=== PATIENT | male | born 1985 | race African-American/Black ===

== ENCOUNTER 2022-09-29 10:30 | Emergency (ER) | payer OTHER ==
[2022-09-29 11:05] VITALS: BP 130/90; PULSE 69; RESP 16; TEMP 98; BMI 28.5
[2022-09-29] MEDS ORDERED: IBUPROFEN 600 MG TABLET (FP) PO ONE ×2 (11:07→11:10)
== END 2022-09-29 11:57 | disposition home or self-care (01) ==
LOC: FER 10:30
DX: S80.211A Abrasion, right knee, initial encounter (principal)
CPT/HCPCS: 73560-TC-RT-FY; 99284-25

== ENCOUNTER 2022-11-22 15:18 | Emergency (ER) | payer BC, OTHER ==
[2022-11-22 15:22] VITALS: BP 127/105; PULSE 70; RESP 18; TEMP 98.9; BMI 27.7
[2022-11-22] MEDS ORDERED: KETOROLAC TROMETHAMINE 30 MG/1 ML VIAL IM ONE (16:34)
[2022-11-22] MEDS ORDERED: AMOX TR/POT CLAV 875MG/125MG TABLETS (FP) PO ONE (16:34)
[2022-11-22] MEDS ORDERED: AMOX TR/POT CLAV 875MG/125MG TABLETS (FP) ONE (16:36)
[2022-11-22] MEDS ORDERED: KETOROLAC TROMETHAMINE 30 MG/1 ML VIAL ONE (16:37)
== END 2022-11-22 16:49 | disposition home or self-care (01) ==
LOC: FER 15:18
PROC: 3E0233Z Introduction of Anti-inflammatory into Muscle, Percutaneous Approach (ICD-10-PCS; principal; 2022-11-22)
DX: K08.89 Other specified disorders of teeth and supporting structures (principal)
CPT/HCPCS: 99284-25

== ENCOUNTER 2022-11-24 15:11 | Emergency (ER) | payer BC ==
[2022-11-24 15:23] VITALS: BP 129/87; PULSE 86; RESP 20; TEMP 100.1; BMI 30.9
== END 2022-11-24 17:49 | disposition home or self-care (01) ==
LOC: FER 15:11
DX: U07.1 COVID-19 (principal); R05.1 Acute cough
CPT/HCPCS: 0241U-QW; 71046-TC-FY; 99284-25

== ENCOUNTER 2023-09-10 12:04 | Emergency (ER) | payer BC, OTHER ==
[2023-09-10 12:17] VITALS: BP 132/91; PULSE 63; RESP 16; TEMP 98; BMI 29.2
[2023-09-10] MEDS ORDERED: KETOROLAC TROMETHAMINE 30 MG/1 ML VIAL IM ONE (12:33)
[2023-09-10] MEDS ORDERED: ACETAMINOPHEN 500 MG TABLET (FP) PO ONE (12:33)
[2023-09-10] MEDS ORDERED: ACETAMINOPHEN 500 MG TABLET (FP) ONE (12:36)
[2023-09-10] MEDS ORDERED: KETOROLAC TROMETHAMINE 30 MG/1 ML VIAL ONE (12:36)
== END 2023-09-10 12:55 | disposition home or self-care (01) ==
LOC: FER 12:04
PROC: 3E0233Z Introduction of Anti-inflammatory into Muscle, Percutaneous Approach (ICD-10-PCS; principal; 2023-09-10)
DX: M54.2 Cervicalgia (principal); S16.1XXA Strain of muscle, fascia and tendon at neck level, initial encounter; X58.XXXA Exposure to other specified factors, initial encounter
CPT/HCPCS: 99284-25

== ENCOUNTER 2024-01-03 08:54 | Emergency (ER) | payer BC ==
[2024-01-03] MEDS ORDERED: IBUPROFEN 600 MG TABLET (FP) PO ONE (09:06)
[2024-01-03] MEDS ORDERED: METOCLOPRAMIDE HCL INJECTION 10 MG/2 ML VIAL IVPUSH ONE (09:06)
[2024-01-03] MEDS ORDERED: SODIUM CHLORIDE 0.9% 500 ML INFUS.BAG IV ONE (09:06)
[2024-01-03] MEDS ORDERED: FLUTICASONE PROP 0.05% 16 GM NASAL SPRAY NS ONE (09:06)
[2024-01-03] MEDS ORDERED: IBUPROFEN 400 MG TABLET (FP) PO ONE (09:20)
[2024-01-03] MEDS ORDERED: METOCLOPRAMIDE HCL INJECTION 10 MG/2 ML VIAL ONE (09:20)
[2024-01-03 09:59] VITALS: BP 121/81; PULSE 63; RESP 18; TEMP 98.4; BMI 29.0
[2024-01-03 10:02] LABS: HEMOGLOBIN 15.8 G/dL (11.7-16.9); MCH 31.3 pg (25.7-33.7); MCHC 34.4 g/dl (32.0-35.9); MEAN PLT VOLUME 9.2 fl (7.5-11.1); PLATELET COUNT 193.5 10^3/uL (134-434); RBC 5.06 10^6/uL (4.00-5.60); RDW 13.1 % (11.9-15.9); WHITE BLOOD COUNT 3.9 10^3/uL (4.0-10.8)
[2024-01-03 10:05] LABS: PLATELET ESTIMATE ADEQUATE
[2024-01-03 10:09] LABS: CALCIUM 9.8 mg/dl (8.5-10.1); CREATININE 1.1 mg/dl (0.6-1.3); POTASSIUM 4.1 mmol/L (3.5-5.1)
== END 2024-01-03 11:10 | disposition home or self-care (01) ==
LOC: FER 08:54
PROC: 3E033GC Introduction of Other Therapeutic Substance into Peripheral Vein, Percutaneous Approach (ICD-10-PCS; principal; 2024-01-03)
DX: R07.9 Chest pain, unspecified (principal); M79.10 Myalgia, unspecified site; R09.81 Nasal congestion; R50.9 Fever, unspecified; R51.9 Headache, unspecified; R05.9 Cough, unspecified; B34.9 Viral infection, unspecified; Z20.822 Contact with and (suspected) exposure to COVID-19
CPT/HCPCS: 0241U-QW; 36415; 71046-TC-FY; 80048; 83690; 84484; 85027; 93005; 99285-25

== ENCOUNTER 2024-03-26 04:02 | Emergency (ER) | payer OTHER, BC ==
[2024-03-26 04:17] VITALS: BP 125/101; PULSE 75; RESP 18; TEMP 98.2; BMI 29.0
[2024-03-26] MEDS ORDERED: IBUPROFEN 600 MG TABLET (FP) PO ONE (04:19)
[2024-03-26] MEDS: IBUPROFEN 600 MG TABLET (FP) PO ONE (04:20)
== END 2024-03-26 04:25 | disposition home or self-care (01) ==
LOC: FER 04:02
DX: S46.912A Strain of unspecified muscle, fascia and tendon at shoulder and upper arm level, left arm, initial encounter (principal); X50.1XXA Overexertion from prolonged static or awkward postures, initial encounter
CPT/HCPCS: 99283-25

== ENCOUNTER 2024-05-30 03:07 | Emergency (ER) | payer OTHER, BC ==
[2024-05-30 03:32] VITALS: BP 125/84; PULSE 74; RESP 16; TEMP 98.5; BMI 29.0
== END 2024-05-30 03:46 | disposition home or self-care (01) ==
LOC: FER 03:07
DX: S80.01XA Contusion of right knee, initial encounter (principal); W22.8XXA Striking against or struck by other objects, initial encounter; Y35.811A Legal intervention involving manhandling, law enforcement official injured, initial encounter
CPT/HCPCS: 99282-25

== ENCOUNTER 2024-10-01 00:55 | Emergency (ER) | payer OTHER, BC ==
[2024-10-01 01:07] VITALS: BP 144/90; PULSE 79; RESP 17; TEMP 98.1; BMI 29.6
[2024-10-01] MEDS ORDERED: IBUPROFEN 600 MG TABLET (FP) PO ONE (01:07)
[2024-10-01] MEDS ORDERED: DIPHTH,PERTUSS(ACELL),TET 0.5 ML DISP.SYRIN IM ONE (01:07)
[2024-10-01] MEDS: DIPHTH,PERTUSS(ACELL),TET 0.5 ML DISP.SYRIN IM ONE (01:20)
[2024-10-01] MEDS: IBUPROFEN 600 MG TABLET (FP) PO ONE (01:21)
== END 2024-10-01 01:29 | disposition home or self-care (01) ==
LOC: FER 00:55
PROC: 3E0234Z Introduction of Serum, Toxoid and Vaccine into Muscle, Percutaneous Approach (ICD-10-PCS; principal; 2024-10-01)
DX: S50.311A Abrasion of right elbow, initial encounter (principal); W50.4XXA Accidental scratch by another person, initial encounter; Y35.811A Legal intervention involving manhandling, law enforcement official injured, initial encounter; Z23 Encounter for immunization
CPT/HCPCS: 90715; 99284-25

== ENCOUNTER 2025-04-19 10:49 | Emergency (ER) | payer OTHER ==
[2025-04-19 11:06] VITALS: BP 131/96; PULSE 66; RESP 20; TEMP 97.5; BMI 28.7
[2025-04-19] MEDS ORDERED: IBUPROFEN 400 MG TABLET (FP) PO ONE (11:09)
[2025-04-19] MEDS ORDERED: ACETAMINOPHEN 500 MG TABLET (FP) ONE (11:09)
[2025-04-19] MEDS: IBUPROFEN 400 MG TABLET (FP) PO ONE (11:14)
[2025-04-19] MEDS: ACETAMINOPHEN 500 MG TABLET (FP) PO ONE (11:14)
== END 2025-04-19 12:07 | disposition home or self-care (01) ==
LOC: FER 10:49
DX: S60.511A Abrasion of right hand, initial encounter (principal); Y35.811A Legal intervention involving manhandling, law enforcement official injured, initial encounter
CPT/HCPCS: 73130-TC-RT-FY; 99283-25